=== PATIENT | female | born 2000 | race African-American/Black ===

== ENCOUNTER 2019-09-26 23:56 | Inpatient (IN) ==
[2019-09-27] MEDS ORDERED: BUTORPHANOL 2 MG/ML VIAL IV PRN (00:03)
[2019-09-27] MEDS ORDERED: ONDANSETRON 4 MG/2 ML VIAL IV PRN ×2 (00:03→17:15)
[2019-09-27] MEDS ORDERED: MEPERIDINE 50 MG/1 ML VIAL IV PRN (00:03)
[2019-09-27 00:29] LABS: Basophils % 0.3 % (0.0-0.8); Eosinophils # 0.1 10*3/uL (0.0-0.87); Eosinophils % 0.5 % (0.00-10.9); Hematocrit 35.8 VOL% (35.7-47.0); Hemoglobin 12.2 GM/DL (12.0-16.0); Immature Granulocytes % 1.4 %; Immature Granulocytes Absolute 0.16 #; Lymphocytes # 2.9 10*3/uL (1.4-4.0); Mean Corpuscular HGB Conc 34.1 GM/DL (32-36); Mean Corpuscular Volume 86.1 FL (87-102); Mean Platelet Volume 9.9 FL (9.6-12.0); Monocytes % 9.5 % (1.7-12.7); Neutrophils % 62.3 % (38.7-73.9); Platelet Count 200 T/CUMM (130-400); Red Blood Count 4.16 MC/CUMM (3.8-5.5); Red Cell Distribution Width 13.9 % (9.3-17.3); White Blood Count 11.3 T/CUMM (4-12)
[2019-09-27] MEDS ORDERED: OXYTOCIN/LR 20 UNIT/1,000 ML BAG IV SCH (00:30)
[2019-09-27] MEDS: LACTATED RINGERS 1,000 ML IV SCH ×3 (00:58→12:40)
[2019-09-27] MEDS ORDERED: AMPICILLIN INJ 2,000 MG in SODIUM CHLORIDE 0.9% 100 ML IV ONE (01:06)
[2019-09-27] MEDS: AMPICILLIN INJ 1,000 MG in SODIUM CHLORIDE 0.9% 100 ML IV SCH ×3 (05:56→13:35)
[2019-09-27] MEDS ORDERED: LACTATED RINGERS 1,000 ML IV ONE (10:20)
[2019-09-27] MEDS ORDERED: diphenhydrAMINE 50 MG/1 ML VIAL IV PRN ×2 (10:20)
[2019-09-27] MEDS ORDERED: NALOXONE 0.4 MG/ML VIAL IV PRN (10:20)
[2019-09-27] MEDS ORDERED: CITRIC ACID/SODIUM CITRATE 30 ML UDCUP PO ONE (10:20)
[2019-09-27] MEDS ORDERED: FAMOTIDINE 20 MG/2 ML VIAL IV ONE (10:20)
[2019-09-27] MEDS ORDERED: PROMETHAZINE 25 MG/1 ML VIAL IM ONE (10:20)
[2019-09-27] MEDS ORDERED: ePHEDrine 50 MG/ML AMP IV PRN (10:20)
[2019-09-27] MEDS ORDERED: hydrOXYzine HCL 25 MG/1 ML VIAL IM PRN (10:20)
[2019-09-27] MEDS ORDERED: fentaNYL 2 MCG/ROPIV 0.2% EPID 100 ML EPIDURAL SCH (10:30)
[2019-09-27 12:15] LABS: Amorphous Crystals,Urine Occasional /HPF (Few); Apearance,Urine CLOUDY (Clear); Bilirubin,Urine Negative (Negative); Blood, Urine Negative (Negative); Glucose,Urine (UA) Negative (Negative); Ketones,Urine 20 mg/dL (Negative); Mucus,Urine Occasional /LPF (Occasional); Nitrite,Urine Negative (Negative); Protein,Urine Negative; Urine Color Yellow (Yellow); Urine Specific Gravity 1.014 (1.001-1.035); Urine Urobilinogen < 2.0 EU/DL (0.2-1.0)
[2019-09-27] MEDS ORDERED: TRANEXAMIC ACID 1,000 MG/10 ML VIAL ONE (16:13)
[2019-09-27] MEDS ORDERED: miSOPROStoL 200 MCG TABLET ONE (16:13)
[2019-09-27] MEDS ORDERED: METHYLERGONOVINE 0.2 MG/1 ML AMP ONE (16:13)
[2019-09-27] MEDS ORDERED: CARBOPROST TROMETHAMINE 250 MCG/ML AMP IM ONE (16:14)
[2019-09-27] MEDS ORDERED: miSOPROStoL 200 MCG TABLET RECTAL ONE (17:08)
[2019-09-27] MEDS ORDERED: RHO(D) IMMUNE GLOBULIN 300 MCG SYRINGE IM ONE (17:15)
[2019-09-27] MEDS ORDERED: BISACODYL 10 MG SUPP RECTAL PRN (17:15)
[2019-09-27] MEDS ORDERED: OXYTOCIN/LR 20 UNIT/1,000 ML BAG IV ONE (17:15)
[2019-09-27] MEDS ORDERED: DIPH/TET/ACEL PERT BOOSTER VACCINE 0.5 ML VIAL IM ONE (17:15)
[2019-09-27] MEDS ORDERED: LANOLIN 50% CREAM 0.3 OZ TUBE TOP PRN (17:15)
[2019-09-27] MEDS ORDERED: oxyCODONE/ACETAMINOPHEN 5-325 MG TABLET PO PRN (17:15)
[2019-09-27] MEDS ORDERED: MEASLES/MUMPS/RUBELLA VACCINE 0.5 ML VIAL SUBCUT ONE (17:15)
[2019-09-27] MEDS ORDERED: WITCH HAZEL PADS 100/JAR TOP PRN (17:15)
[2019-09-27] MEDS ORDERED: BENZOCAINE 20%/MENTHOL 0.5% SPRAY 56 GM CAN TOP PRN (17:15)
[2019-09-27] MEDS ORDERED: ACETAMINOPHEN 325 MG TABLET PO PRN (17:15)
[2019-09-27] MEDS: IBUPROFEN 800 MG TABLET PO PRN (23:18)
[2019-09-27] MEDS: HYDROCORTISONE 2.5% RECTAL CREAM 30 GM TUBE TOP PRN (23:18)
[2019-09-27] MEDS: oxyCODONE/ACETAMINOPHEN 5-325 MG TABLET PO PRN (23:19)
[2019-09-28 06:29] LABS: Basophils % 0.2 % (0.0-0.8); Eosinophils % 0.2 % (0.00-10.9); Hematocrit 31.2 VOL% (35.7-47.0); Hemoglobin 10.4 GM/DL (12.0-16.0); Immature Granulocytes Absolute 0.13 #; Lymphocytes # 2.4 10*3/uL (1.4-4.0); Lymphocytes % 17.5 % (21.3-54.2); Mean Corpuscular HGB Conc 33.3 GM/DL (32-36); Mean Corpuscular Volume 87.2 FL (87-102); Mean Platelet Volume 10.2 FL (9.6-12.0); Monocytes % 9.3 % (1.7-12.7); Neutrophils % 71.8 % (38.7-73.9); Platelet Count 167 T/CUMM (130-400); Red Blood Count 3.58 MC/CUMM (3.8-5.5); Red Cell Distribution Width 13.7 % (9.3-17.3); White Blood Count 13.5 T/CUMM (4-12)
[2019-09-28] MEDS: DOCUSATE SODIUM 100 MG CAPSULE PO SCH ×2 (08:49→20:44)
[2019-09-28] MEDS: IBUPROFEN 800 MG TABLET PO PRN ×2 (08:49→20:44)
[2019-09-28] MEDS: oxyCODONE/ACETAMINOPHEN 5-325 MG TABLET PO PRN ×2 (13:16→20:43)
[2019-09-28] MEDS: HYDROCORTISONE 2.5% RECTAL CREAM 30 GM TUBE TOP PRN (20:38)
[2019-09-29 07:28] VITALS: BP 107/63
[2019-09-29] MEDS: DOCUSATE SODIUM 100 MG CAPSULE PO SCH (09:15)
[2019-09-29] MEDS ORDERED: DIPH/TET/ACEL PERT BOOSTER VACCINE 0.5 ML VIAL IM ONE (13:14)
== END 2019-09-29 14:45 | disposition home or self-care (01) | DRG 560 ==
LOC: N.LDOUT 23:56 → N.LD 23:57 → N.OB 09-27 23:05
PROVIDERS: ADMIT Obstetrics & Gynecology; ATTEND Obstetrics & Gynecology